=== PATIENT | female | born 1965 | race Caucasian/White ===

== ENCOUNTER 2017-10-12 14:22 | Emergency (ER) | payer SELFPAY ==
[2017-10-12] MEDS ORDERED: diphenhydrAMINE 50 MG/ML VIAL ONE (14:29)
[2017-10-12] MEDS ORDERED: EPINEPHrine 1 MG/ML AMP ONE (14:29)
[2017-10-12] MEDS ORDERED: methylPREDNISolone Sod Succ/PF 125 MG/2 ML VIAL ONE (14:29)
[2017-10-12] MEDS ORDERED: Famotidine 20 MG TAB ONE (14:40)
== END 2017-10-12 16:28 | disposition home or self-care (01) ==
LOC: ERS 14:22
DX: R21 Rash and other nonspecific skin eruption (principal); T36.8X5A Adverse effect of other systemic antibiotics, initial encounter; M19.90 Unspecified osteoarthritis, unspecified site; F32.9 Major depressive disorder, single episode, unspecified; Z79.899 Other long term (current) drug therapy
CPT/HCPCS: 96374; 96375; J0171; J1200; J2930

== ENCOUNTER 2021-05-17 11:07 | Emergency (ER) | payer SELFPAY ==
[2021-05-17 17:21] LABS: SARS-CoV-2 PCR by NAA DETECTED (NotDetected)
== END 2021-05-17 11:58 | disposition home or self-care (01) ==
LOC: ERS 11:07
DX: U07.1 COVID-19 (principal)
CPT/HCPCS: 99283; U0003; U0005

== ENCOUNTER 2021-12-14 10:22 | Emergency (ER) | payer BC ==
[2021-12-14 11:09] LABS: #Eosinphils 0.2 thou/uL (0.0-0.7); #Lymphocytes 1.3 thou/uL (1.20-3.40); #Monocytes 0.6 thou/uL (0.11-0.59); #Neutrophils 2.6 thou/uL (1.40-6.50); %Basophils 0.7 % (0.0-1.0); %Lymphocytes 26.9 % (21.0-51.0); %Monocytes 12.4 % (0.0-10.0); %Neutrophils 56.1 % (42.0-75.0); Mean Corpuscular HGB CONC 32.1 g/dL (32.0-36.0); Mean Corpuscular Volume 93.3 fL (78.0-98.0); Mean Platelet Volume 8.8 fL (7.4-10.4); Platelet Count 197 thou/uL (130-400); RBC Distribution Width 12.5 % (11.5-14.5); Red Blood Cell (RBC) Count 4.33 mill/uL (4.20-5.40); White Blood Cell (WBC) Count 4.6 thou/uL (4.8-10.8)
[2021-12-14 11:30] LABS: ALT (SGPT) 28 U/L (8-55); AST (SGOT) 25 U/L (5-34); Albumin 3.9 g/dL (3.5-5.0); Alkaline Phosphatase 123 U/L (40-110); Anion Gap 12 mmol/L (10-20); BUN (Urea Nitrogen) 13 mg/dL (9.8-20.1); Bilirubin, Total 1.1 mg/dL (0.2-1.2); Calc. Creatinine Clearance 0 mL/min (70-130); Calcium 9.4 mg/dL (7.8-10.44); Carbon Dioxide 27 mmol/L (22-29); Chloride 107 mmol/L (98-107); Estimated GFR 104; Globulin 3.3 g/dL (2.4-3.5); Glucose 82 mg/dL (70-105); Potassium 4.6 mmol/L (3.5-5.1); Protein, Total 7.2 g/dL (6.0-8.3); Sodium 141 mmol/L (136-145)
[2021-12-14 11:50] LABS: Bilirubin Negative (Negative); Blood, Urine Negative (Negative); Clarity Clear (Clear); Glucose, Urine (Dipstick) Normal (Negative); Ketone, Urine Negative (Negative); Leukocyte Negative Leu/uL (Negative); Nitrite Negative (Negative); Protein, Urine (Dipstick) Negative (Neg-Trace); Specific Gravity, Urine 1.021 (1.002-1.036); Urobilinogen Normal mg/dL (Less than 2)
== END 2021-12-14 12:44 | disposition home or self-care (01) ==
LOC: ERS 10:22
DX: M17.12 Unilateral primary osteoarthritis, left knee (principal); M54.50 Low back pain, unspecified
CPT/HCPCS: 36415; 71045; 80053; 81003; 83605; 84484; 85025; 87040; 93005; 94760

== ENCOUNTER 2022-07-30 13:48 | Outpatient (CLI) | payer BC, OTHER | END 2022-07-30 13:49 | disposition home or self-care (01) | LOC: CT 13:48 | PROVIDERS: ATTEND Otolaryngology Plastic Surgery within the Head & Neck | DX: H71.21 Cholesteatoma of mastoid, right ear (principal); H73.891 Other specified disorders of tympanic membrane, right ear; H73.92 Unspecified disorder of tympanic membrane, left ear; H74.92 Unspecified disorder of left middle ear and mastoid | CPT/HCPCS: 70480 ==

== ENCOUNTER 2023-03-29 10:47 | Outpatient (CLI) | payer BC | END 2023-03-29 10:48 | disposition home or self-care (01) | LOC: BICRAD 10:47 | PROVIDERS: ATTEND Student in an Organized Health Care Education/Training Program | DX: R11.0 Nausea (principal) | CPT/HCPCS: 74018 ==

== ENCOUNTER 2023-04-07 14:08 | Outpatient (CLI) | payer BC | END 2023-04-07 14:09 | disposition home or self-care (01) | LOC: BICRAD 14:08 | PROVIDERS: ATTEND Pediatrics | DX: M47.26 Other spondylosis with radiculopathy, lumbar region (principal) | CPT/HCPCS: 72120 ==